=== PATIENT | female | born 1975 | race Asian ===

== ENCOUNTER 2016-03-03 12:09 | Emergency (ER) | payer OTHER ==
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
--- NOTE | 2016-03-03 13:20 | ED CLINICAL REPORT ---
Clinical Report - Physicians/Mid Levels [facility] [address] [place] [address] 03/03/2016 12:08 Patient: GABRIEL HDEZ Time Seen: 14:09 Mar 03 2016. Arrived- By private vehicle. Historian- patient. HISTORY OF PRESENT ILLNESS Chief Complaint: paresthesias to face. This started today and is now gone. No loss of appetite, weight loss, headache or muscle aches. Denies sleep problem. (40-year-old female, who reports in the car today, while driving, was doing facial exercises, which she normally does, while smiling, though some paresthesias to her left side. She reports no pain or headache, paresthesias lasted a few times, each lasting about 5 minutes. Denies any recent dental work. Denies any new medications. Denies headache. Denies any difficulty with speech or any functional difficulty She reports she has had paeresthesias h left upper extremity over the last few months as while. Previously had paresthesias to her left lower extremity. No h/o cva/tia/shingles. denies any trauma to the area. Denies any difficulty swallowing or any dental pain. Denies any weakness. She has no symptoms while sitting in the emergency department now.). REVIEW OF SYSTEMS No fever, sore throat, sinus drainage, cough or difficulty breathing. No diarrhea, difficulty with urination, abnormal bleeding, headache or blackouts. All systems otherwise negative, except as recorded above. SOCIAL HISTORY Former smoker. Alcohol use. No drug use. ADDITIONAL NOTES The nursing notes have been reviewed. PHYSICAL EXAM Vital Signs: 03/03/2016 12:37 BP: 104/55. HR: 85. RR: 18. O2 saturation: 98%. Temp: 98.0 F. Appearance: Alert. No acute distress. Eyes: Pupils equal, round and reactive to light. Eyes normal inspection. ENT: Ears normal. Nose normal. Pharynx normal. No nasal discharge or pharyngeal erythema. Neck: Normal inspection. Neck supple. No carotid bruit or lymphadenopathy. CVS: Normal heart rate and rhythm. Heart sounds normal. Respiratory: No respiratory distress. Breath sounds normal. No rales or rhonchi. Abdomen: No visible injury. Soft. Skin: Skin warm. Normal skin color. Neuro: Oriented X 3. Cranial nerves II through XII intact. No motor deficit. No sensory deficit. No sensory deficit. PROGRESS AND PROCEDURES Course of Care: Negative examination, and patient is asymptomatic, unclear cause of patient's generalized paresthesias. At this time critical emergency such as CVA, TIA are less likely, given duration of the symptoms has been over a few months. No obvious signs of infectious processes she has no history of shingles, warned in regard if she receives her rash for further follow-up. She and I discussed need for further follow-up with primary care provider, to consider further advanced imaging if symptoms persist or worsen, become more debilitated to her activities of daily living. She understands the plan, and agrees with it and is otherwise discharged home. Patient is stable. Patient/family counseled. Disposition: Discharged. CLINICAL IMPRESSION Paresthesia INSTRUCTIONS (follow up with your dr in 5-7 days and keep a diary of your symptoms and when). Follow-up: Follow up with doctor in five days. (Electronically signed by Elvira Jackson P.A.-C 03/03/2016 14:16)
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
--- NOTE | 2016-03-03 14:17 | ED MED RECONCILIATION SUMMARY ---
Patient: GABRIEL HDEZ Medication Reconciliation Report [facility] VisitID: [id number] [address] [place] [address] 40y, F Registration Date/Time: 03/03/2016 Weight: 57.1 kg Height/Length: 61 in. BMI: 23.8 ALLERGIES: No Known Drug Allergy The patient's Home Medications are listed below: THE FOLLOWING MEDICATIONS NEED TO BE RECONCILED: Loratadine Oral (10 mg) 1 tablet, daily Medication for shakiness The source(s) of the original Home Medication information: patient The following Medications were given to the patient in the Emergency Department: None. The following Medications were prescribed to the patient: None.
--- NOTE | 2016-03-03 14:17 | ED DISCHARGE INSTRUCTIONS ---
Patient: GABRIEL HDEZ General Instructions [facility] VisitID: [id number] [place] [address] 40y, F Registration Date/Time: 03/03/2016 Paresthesia INSTRUCTIONS (follow up with your dr in 5-7 days and keep a diary of your symptoms and when). Follow-up: Follow up with doctor in five days. ADDITIONAL INFORMATION Paraesthesias Paraesthesia refers to a burning or prickling sensation that is sometimes felt in the hands, arms, legs or feet. It can also occur in other parts of the body. It can also feel like tingling or numbness, skin crawling or itching.The sensation is usually painless. Most people have experienced pins and needles. This feeling happens when legs have been crossed for too long and pressure is placed on a nerve. This is a temporary paraesthesia. It quickly goes away once the pressure is relieved. There are many possible causes for chronic paraesthesias. These include such disorders as stroke, herniated disk (pressing on a nerve), trapped nerve in the shoulder, elbow or wrist (such as carpal tunnel syndrome), vitamin deficiencies or even certain medicines. Laboratory tests are needed to make an accurate diagnosis. These tests may include blood tests, X-ray, CT (computerized tomography) scan or a muscle test (electromyography).Depending on the cause, treatment may include physical therapy. Home Care: Do not make any changes to your medicines without advice from your doctor. If vitamins have been prescribed, remember to take them daily at the recommended dose. Because of a decrease in feeling, a numb hand or foot may be more prone to injury. Take care to protect these areas from cuts, bumps, bruises, hammond or other injury. Keep your nails trimmed and wash your hands and feet often. Wear shoes that fit well to avoid pressure points, blisters and ulcers. Look at your hands and feet carefully (including the soles of your feet and between your toes) at least once a week and notify your doctor of any open wounds or signs of infection. Follow Up with your doctor or as advised by our staff. You may need further testing to determine the exact cause of your paraesthesia. [NOTE: If blood tests, X-ray, CT scan or electromyography were done, specialists will review them. You will be notified of any new findings that may affect your care.] Get Prompt Medical Attention if any of the following occur: Numbness or weakness of the face, one arm or one leg Slurred speech, confusion, trouble speaking, walking or seeing Severe headache, fainting spell, dizziness or seizure Chest, arm, neck or upper back pain Loss of bladder or bowel control Open wound with redness, swelling or pus You have been given the following additional information: Paraesthesias (Electronically signed by Elvira Jackson P.A.-C 03/03/2016 14:16)
--- NOTE | 2016-03-03 14:17 | ED MAR SUMMARY ---
..... Medication Administration Record [facility] [address], [place] [id number] Patient: GABRIEL HDEZ Visit ID: [id number] 40y, F Weight: 57.1 kg Height/Length: 61 in BMI: 23.8 ALLERGIES: No Known Drug Allergy
--- NOTE | 2016-03-03 14:17 | ED MED RECONCILIATION SUMMARY ---
Patient: GABRIEL HDEZ Medication Reconciliation Report [facility] VisitID: [id number] [address] [place] [address] 40y, F Registration Date/Time: 03/03/2016 Weight: 57.1 kg Height/Length: 61 in. BMI: 23.8 ALLERGIES: No Known Drug Allergy The patient's Home Medications are listed below: THE FOLLOWING MEDICATIONS NEED TO BE RECONCILED: Loratadine Oral (10 mg) 1 tablet, daily Medication for shakiness The source(s) of the original Home Medication information: patient The following Medications were given to the patient in the Emergency Department: None. The following Medications were prescribed to the patient: None.
--- NOTE | 2016-03-03 14:17 | ED MAR SUMMARY ---
..... Medication Administration Record [facility] [address] [place], [place] [id number] Patient: GABRIEL HDEZ Visit ID: [id number] 40y, F Weight: 57.1 kg Height/Length: 61 in BMI: 23.8 ALLERGIES: No Known Drug Allergy
== END 2016-03-03 13:20 | disposition home or self-care (01) ==
LOC: ED SRH 12:09
DX: R20.9 Unspecified disturbances of skin sensation (principal); Z87.891 Personal history of nicotine dependence